=== PATIENT | male | born 1945 | race Caucasian/White ===

== ENCOUNTER → 2017-12-17 06:58 | Outpatient (CLI) | payer MEDICARE, SELFPAY ==
[2017-12-17 07:27] LABS: Hematocrit 44.4 % (40-54); Hemoglobin 14.1 g/dl (13.0-16.5); Mean Corp Hgb Conc 31.8 g/gl (32-36); Mean Corpuscular Hgb 27.1 pg (27.0-32.0); Mean Corpuscular Volume 85.2 fL (80-94); Mean Platelet Vol. 10.5 fl (6.2-12.0); Platelet Count 222 K/mm3 (150-450); RBC Distribution Width CV 14.2 % (11.6-14.6); RBC Distribution Width SD 44.6 fl (35.1-43.9); Red Blood Count 5.21 M/mm3 (4.6-6.2); White Blood Count 6.8 K/mm3 (4.4-11.0)
[2017-12-17 07:30] LABS: Scan Indicated on CBC? Y/N NO
[2017-12-17 07:44] LABS: ALB/GLOB Ratio 1.2 RATIO (0.9-2.4); AST(SGOT) 21 U/L (15-37); Alanine Aminotransfer ALT/SGPT 28 U/L (16-61); Alkaline Phosphatase 70 U/L (45-117); Anion Gap 6 (5-15); BUN 25 mg/dL (7-18); BUN/Creat Ratio 18.8 RATIO (10-20); Calcium,Total 8.9 mg/dL (8.5-10.1); Chloride 102 mmol/L (98-107); Cholesterol 149 mg/dL (200); Creatinine, Serum 1.33 mg/dL (0.70-1.30); EST Glomerular Filtration Rate 56 mL/min (>60); Est Glom Filt Rate - Afr Amer 68 mL/min (>60); Globulin 3.4 g/dL (2.2-4.2); Glucose 100 mg/dL (74-106); High Density Lipoprotein 50 mg/dL; Potassium 4.7 mmol/L (3.5-5.1); Protein, Total 7.4 g/dL (6.4-8.2); Sodium Level 140 mmol/L (136-145); T4 Free Direct 1.11 ng/dL (0.76-1.46); Thyroid Stim Hormone (TSH) 1.64 uIU/mL (0.358-3.74); Triglycerides 111 mg/dL; Very Low Density Lipoprotein 22 mg/dL (5-40)
== END ==
PROVIDERS: Family Provider Family Medicine; PCP Family Medicine; Visit Provider Family Medicine
DX: E78.2 Mixed hyperlipidemia (principal); K21.9 Gastro-esophageal reflux disease without esophagitis; C32.9 Malignant neoplasm of larynx, unspecified
CPT/HCPCS: 36415; 80053; 80061; 84439; 84443; 85027

== ENCOUNTER 2018-03-19 13:07 | Emergency (ER) | payer MEDICARE, SELFPAY ==
--- NOTE | 2018-03-19 13:07 | DT_ITS ---
This patient was seen during an EMR downtime March 17, 2018 - March 24, 2018. This patient may have a combination of paper and electronic documentation or all paper documentation. All documentation is viewable within the e-chart portion of [facility] for each patient visit.
--- NOTE | 2018-03-19 13:57 | RAD_ITS ---
STUDY: X-RAY - LUMBAR SPINE REASON FOR EXAM: Male, 72 years old. LOWER BACK PAIN TECHNIQUE: 5 view(s) of the lumbar spine were obtained. COMPARISON: None FINDINGS: Normal lumbar lordosis. There is mild scoliosis centered at L1/L2. There is mild depression at superior endplate of L2, consistent with fracture of indeterminate age. There is no retropulsion.. There is multilevel endplate spondylosis of the lumbar vertebrae. There is multi-level degenerative disc disease with multi-level disc space narrowing. There are calcification at the left renal region. RAD/L/S Spine Min 4 Views IMPRESSION: Degenerative changes of the spine. Mild superior endplate fracture at L2, indeterminate age. Electronically Signed: Mela Kaur MD at 10:35 EDT Tel , Service support ,
== END 2018-03-19 16:30 | disposition home or self-care (01) ==
LOC: ED 03-20 13:46
PROVIDERS: Emergency Provider Emergency Medicine; Family Provider Family Medicine; PCP Family Medicine
DX: M54.41 Lumbago with sciatica, right side (principal); M51.36 Other intervertebral disc degeneration, lumbar region; N20.0 Calculus of kidney; E78.00 Pure hypercholesterolemia, unspecified; K21.9 Gastro-esophageal reflux disease without esophagitis; Z79.899 Other long term (current) drug therapy; Z87.891 Personal history of nicotine dependence
CPT/HCPCS: 36415; 72110; 99283

== ENCOUNTER 2018-03-21 04:28 | Emergency (ER) | payer MEDICARE, SELFPAY ==
--- NOTE | 2018-03-21 04:28 | DT_ITS ---
This patient was seen during an EMR downtime March 17, 2018 - March 24, 2018. This patient may have a combination of paper and electronic documentation or all paper documentation. All documentation is viewable within the e-chart portion of [facility] for each patient visit.
[2018-03-22 10:11] LABS: Anion Gap 9 (5-15); BUN 17 mg/dL (7-18); BUN/Creat Ratio 14.8 RATIO (10-20); Calcium,Total 8.7 mg/dL (8.5-10.1); Chloride 104 mmol/L (98-107); Creatinine, Serum 1.15 mg/dL (0.70-1.30); EST Glomerular Filtration Rate 67 mL/min (>60); Est Glom Filt Rate - Afr Amer 81 mL/min (>60); Glucose 103 mg/dL (74-106); Potassium 4.1 mmol/L (3.5-5.1); Sodium Level 142 mmol/L (136-145)
[2018-03-22 10:11] LABS: Red Blood Count 4.74 M/mm3 (4.6-6.2); White Blood Count 7.8 K/mm3 (4.4-11.0)
[2018-03-22 10:12] LABS: Absolute Lymphocyte Count 1.94 X10^3/ul (0.83-4.51); Absolute Neutrophil Count 4.7 X10^3/uL (2.0-7.7); Basophil# 0.14 X10^3/uL; Basophil% 1.8 % (0-1); Eosinophil# 0.12 X10^3/uL; Eosinophils% 1.5 % (0-5); Erythrocyte Sedimentation Rate 18 mm/hr (0-20); Hematocrit 39.5 % (40-54); Hemoglobin 12.2 g/dl (13.0-16.5); Lymphocyte # 1.94 X10^3/ul (4.0); Mean Corp Hgb Conc 30.9 g/gl (32-36); Mean Corpuscular Hgb 25.7 pg (27.0-32.0); Mean Corpuscular Volume 83.3 fL (80-94); Monocyte# 0.88 X10^3/uL; Monocyte% 11.3 % (0-10); Neutrophil # 4.68 X10^3/uL (2.7-7.7); Neutrophil % 60.3 % (47-70); POSITIVE COUNT NO; POSITIVE DIFFERENTIAL NO; POSITIVE MORPHOLOGY NO; Platelet Count 234 K/mm3 (150-450); RBC Distribution Width CV 14.1 % (11.6-14.6); RBC Distribution Width SD 42.7 fl (35.1-43.9)
== END 2018-03-21 06:33 | disposition home or self-care (01) ==
PROVIDERS: Emergency Medicine; Emergency Provider Emergency Medicine; Family Provider Family Medicine; PCP Family Medicine
DX: M79.604 Pain in right leg (principal); K21.9 Gastro-esophageal reflux disease without esophagitis; E78.00 Pure hypercholesterolemia, unspecified; Z87.891 Personal history of nicotine dependence; Z79.899 Other long term (current) drug therapy
CPT/HCPCS: 80048; 85025; 85652; 96372; 99283

== ENCOUNTER → 2018-11-20 11:23 | Outpatient (CLI) | payer MEDICARE, SELFPAY ==
--- NOTE | 2018-11-20 11:26 | RAD_ITS ---
STUDY: X-RAY - ABDOMEN/PELVIS REASON FOR EXAM: Male, 73 years old. Flank pain TECHNIQUE: Single AP view of the abdomen / pelvis. COMPARISON: 2014 FINDINGS: There is a funnel-shaped 1.6 cm calcification over the mid left kidney. No suspicious calcifications overlying the right kidney. There are stable lucent centered phleboliths within the pelvis. There is a moderate amount of colonic fecal material. There is no demonstrated free abdominal air. The visualized liver, spleen and kidneys are grossly normal in size and morphology. Normal soft tissue structures. There are diffuse degenerative changes of the visualized lumbar spine with a stable chronic compression fracture at L2. RAD/Abdomen Single View IMPRESSION: Left nephrolithiasis Degenerative bony changes with chronic compression fracture at L2 Electronically Signed: Mariano Galvin MD at 11:43 EST , Service support ,
== END ==
PROVIDERS: Family Provider Family Medicine; PCP Family Medicine; Referring Provider Urology; Visit Provider Urology
DX: N20.0 Calculus of kidney (principal)
CPT/HCPCS: 74018

== ENCOUNTER 2018-11-26 14:13 | Day surgery (SDC) | payer MEDICARE, SELFPAY ==
--- NOTE | 2018-11-25 17:16 | PCM.HP.BLA ---
History and Physical Date of Admission: 11/26/18 73 yo male presents with ongoing UTI since 2017. Has been on multiple rounds of antibiotics plus rocephin shots x 2. Currently taking cefdinir, does feel much better on it. Urine cultures have grown E coli. H/o sepsis with kidney stone before. CT shows 14 mm stone in left renal pelvis. Has intermittent back ache L>R. H/o stones, ESWL, stents. H/o TURP. ALLERGIES: None MEDICATIONS: Aspirin Ec 81 mg tablet, delayed release 1 tablet PO Daily Atorvastatin Calcium Cefdinir Multivitamin Prilosec Vitamin C Zantac Notes: Had the pneumonia vaccine 2011 Patient takes a medication for GERD, but does not remember name PSH: Cysto Remove Stent FB Sim - 2014 Cystolithotomy - 2007 Cystoscopy Insert Stent - 2014 Cystoscopy TURP - 2013 Renal ESWL - 2014 NON- PSH: Cholecystectomy Patient documented to have received pneumococcal vaccination Throat Surgery (Unspecified) PMH: Calculus of kidney - 2015, - 2015, - 2014, - 2014 Other abnormal findings in urine - 2015 Benign prostatic hyperplasia with lower urinary tract symptoms - 2013, - 2013, - 2013 Retention of urine, unspecified - 2013, - 2013 NON- PMH: Encounter for surgical aftcr following surgery on the sys - 2013 FAMILY HISTORY: None SOCIAL HISTORY: Marital Status: Preferred Language: Singaporean; Ethnicity: Not Or ; Race: White Current Smoking Status: Patient does not smoke anymore. Does not use smokeless tobacco. Social Drinker. Does not use drugs. Drinks 4+ caffeinated drinks per day. Has not had a blood transfusion. REVIEW OF SYSTEMS: Constitutional: Patient denies fever, chills, weight loss, and weight gain. Eyes: Patient denies blurry vision, cataracts, and vision problems. Ears, Nose, Mouth, Throat: Patient denies hearing loss, sinus infections, nasal stuffiness, and sleep apnea. Cardiovascular: Patient denies chest pains, swollen ankles, irregular heartbeat, and pacemaker/defibrillator. Respiratory: Patient denies shortness of breath, wheezing, use oxygen, cpap at night., and copd. Gastrointestinal: Patient denies abdominal pain, nausea/vomiting, and change in bowels. Genitourinary: Patient reports get up at night to void and history of stones. Patient denies frequent urination, urinary retention, leakage of urine, blood in urine, frequent urinary tract infections, difficulty starting stream, weak stream, and bedwetting. Musculoskeletal: Patient denies sore muscles, back pain, gout, and arthritis. Integumentary/Skin: Patient denies rash, persistent itching, and skin cancer history. Neurological: Patient denies history of falling/unsteadiness., dizziness, stroke/tia, and numbness. Hematologic/Lymphatic: Patient denies swollen glands, abnormal bleeding, transfusion history, and blood clots/dvt/pulmonary embolism. VITAL SIGNS: 11/20/2018 11:00 AM Weight 145 lb / 65.77 kg Height 64 in / 162.56 cm BP 128/62 mmHg BMI 24.9 kg/m? MULTI-SYSTEM PHYSICAL EXAMINATION: Constitutional: Well-nourished. No physical deformities. Normally developed. Good grooming. Neurologic / Psychiatric: Oriented to time, oriented to place, oriented to person. No depression, no anxiety, no agitation. Gastrointestinal: No mass, no tenderness, no rigidity, non obese abdomen. PAST DATA REVIEWED: Source Of History: Patient Records Review: Previous Doctor Records, Previous Patient Records Urine Test Review: Urinalysis X-Ray Review: KUB: Reviewed Films. Reviewed Report. Discussed With Patient. C.T. Abdomen/Pelvis: Reviewed Films. Reviewed Report. Discussed With Patient. 07/30/06 PSA Total PSA 0.50 PROCEDURES: Urinalysis - [address]6922 Dipstick Dipstick Cont'd Specimen: Voided Blood: Neg Appearance: Clear pH: 5.0 Color: Yellow Protein: Neg Glucose: Normal Urobilinogen: Neg Bilirubin: Neg Nitrites: Neg Ketones: Neg Leukocyte Esterase: Neg ASSESSMENT: ICD-10 Details 1 : Calculus of kidney - N20.0 Stable 2 Urinary tract infection, site not specified - N39.0 PLAN: Medications New Meds: Cefdinir 300 mg capsule 1 capsule PO Q 12 H #6 0 Refill(s) Document Letter(s): Created for Patient: Clinical Summary Notes: 73 yo male with 14 mm infected stone left renal pelvis, it is visible on KUB. Plan is for stent and ESWL on 11/26. Will keep him on antibiotic until then. Stop ASA now.
[2018-11-26 14:44] VITALS: BP 132/74; PULSE 68; RESP 18; TEMP 36.9; O2SAT 100; BMI 25.9
[2018-11-26] MEDS: Cefazolin 2 GM in 0.9% Normal Saline 100 ML IV (16:11)
--- NOTE | 2018-11-26 17:25 | DCINST_ITS ---
Discharge Diet: Light diet - advance as tolerated Discharge Activity: Return to Normal Activity May resume sexual activity in: No Restrictions Call your doctor if you observe: Fever of 101 or Higher Suture Line Care: Avoid Pulling/Pushing, Avoid Pinching/Bending Allergies/Adverse Reactions: Allergies No Known Allergies Allergy (Verified 11/24/18 13:46) Medications to take at Discharge Aspirin [Aspirin, Baby] 81 mg PO DAILY@0800 #30 tab.chew 09/27/14 Atorvastatin Calcium [Lipitor] 40 mg PO QHS #30 tablet 09/27/14 Ascorbic Acid [Vitamin C] 1,000 mg PO DAILY 06/16/16 Multivitamins,Therapeutic [Multivitamin] 1 tablet PO DAILY 06/16/16 Ranitidine [Zantac] 150 mg PO DAILY 06/16/16 Cefdinir 300 mg PO DAILY 11/24/18 Acetaminophen [Tylenol Extra Strength] 500 mg PO Q4H PRN PRN #20 tablet 11/26/18 Ibuprofen 600 mg PO Q6H PRN PRN #20 tablet 11/26/18 The following prescriptions were given: Acetaminophen [Tylenol Extra Strength] 500 mg PO Q4H PRN PRN #20 tablet PRN Reason: Pain Ibuprofen 600 mg PO Q6H PRN PRN #20 tablet PRN Reason: Pain Primary Care Physician: Adams Chapman MD [Primary Care Provider] - Test Results: Test results from this visit will be discussed in further detail at your follow- up appointment, if applicable. Please Follow Up With: Jose A Beatty MD When: please call to make an appointment.
--- NOTE | 2018-11-26 17:26 | PCM.OPRPT ---
Report of Operation Date of Procedure: 11/26/18 Pre-Operative Diagnosis: Left renal calculi multiple Post-Operative Diagnosis: Same Surgery/Procedure Performed:: Cystoscopy and placement of the left stent and left shockwave lithotripsy Description of Surgical Findings:: 73-year-old male presents to the office with obstructing stone in the left renal pelvis also some nonobstructing stone in the left lower pole the left kidney today we plan to proceed with treatment to treat the stones with shockwave lithotripsy. 73-year-old male taken back to the operating room at the smooth induction of anesthesia he was placed supine on the table and then in dorsal lithotomy position penis and testicles are prepped and draped in usual sterile fashion went into the bladder with a 21 Citizen [place] rigid cystourethroscope the light entire length the urethra is normal pendulous urethra is normal bulbar urethra normal sphincter was intact prostate had been resected but he did have a minor bladder neck contracture was able to get through this with the scope and then identified the left ureteral orifice with a and then used a Glidewire advanced up to the kidney and over the wire place a stent 6 Citizen [place] by 26 cm stent. The patient was then repositioned on the table and shockwave lithotripsy was performed on the stone in the left renal pelvis after about 2000 shockwaves the stone had broken up completely there is also some fragments of the lower pole the left kidney and these were shocked with another thousand fragment thousand shockwaves. After completing 3000 shockwaves to the stones in the pelvis and the lower pole stone broke up really well left stent in place left the string of the stent for easy extraction and next week Type of Anesthesia:: General Drains: benja: Rightnt - Admit VTE Documentation VTE Present on Admission: No VTE Mechan Device Prophylaxis: SCD's
--- NOTE | 2018-11-26 17:29 | OP.PCM_ITS ---
Report of Operation Date of Procedure: 11/26/18 Pre-Operative Diagnosis: Left renal calculi multiple Post-Operative Diagnosis: Same Surgery/Procedure Performed:: Cystoscopy and placement of the left stent and left shockwave lithotripsy Description of Surgical Findings:: 73-year-old male presents to the office with obstructing stone in the left renal pelvis also some nonobstructing stone in the left lower pole the left kidney today we plan to proceed with treatment to treat the stones with shockwave lithotripsy. 73-year-old male taken back to the operating room at the smooth induction of anesthesia he was placed supine on the table and then in dorsal lithotomy position penis and testicles are prepped and draped in usual sterile fashion went into the bladder with a 21 [place] rigid cystourethroscope the light entire length the urethra is normal pendulous urethra is normal bulbar urethra normal sphincter was intact prostate had been resected but he did have a minor bladder neck contracture was able to get through this with the scope and then identified the left ureteral orifice with a and then used a Glidewire advanced up to the kidney and over the wire place a stent 6 [place] by 26 cm stent. The patient was then repositioned on the table and shockwave lithotripsy was performed on the stone in the left renal pelvis after about 2000 shockwaves the stone had broken up completely there is also some fragments of the lower pole the left kidney and these were shocked with another thousand fragment thousand shockwaves. After completing 3000 shockwaves to the stones in the pelvis and the lower pole stone broke up really well left stent in place left the string of the stent for easy extraction and next week Type of Anesthesia:: General Drains: benja: Rightnt - Admit VTE Documentation VTE Present on Admission: No VTE Mechan Device Prophylaxis: SCD's
[2018-11-26 17:35] VITALS: BP 132/74; BP 143/98; PULSE 70; RESP 16; TEMP 36.6; O2SAT 98
[2018-11-26 17:45] VITALS: BP 132/74; BP 140/107; PULSE 70; RESP 16; O2SAT 100
[2018-11-26 18:00] VITALS: BP 132/74; BP 158/87; PULSE 68; RESP 16; O2SAT 95
[2018-11-26 18:05] VITALS: BP 132/74; BP 136/83; PULSE 68; RESP 16; TEMP 36.6; O2SAT 99
[2018-11-26 18:43] VITALS: BP 132/74
== END 2018-11-26 18:55 | disposition home or self-care (01) ==
LOC: SDC 14:17 → AC 14:21
PROVIDERS: Family Provider Family Medicine; PCP Family Medicine; Referring Provider Urology; Visit Provider Urology
PROC: (CPT 50590; principal; 2018-11-26 16:15)
DX: N20.0 Calculus of kidney (principal); N39.0 Urinary tract infection, site not specified; B96.20 Unspecified Escherichia coli [E. coli] as the cause of diseases classified elsewhere; Z87.891 Personal history of nicotine dependence; K21.9 Gastro-esophageal reflux disease without esophagitis; E78.00 Pure hypercholesterolemia, unspecified; Z79.899 Other long term (current) drug therapy; Z79.82 Long term (current) use of aspirin; Z85.21 Personal history of malignant neoplasm of larynx
CPT/HCPCS: 50590; 52332; J7120; C1769; C2617; J2405

== ENCOUNTER → 2018-12-04 12:46 | Outpatient (CLI) | payer MEDICARE, SELFPAY ==
[2018-11-26 14:44] VITALS: BMI 25.9
--- NOTE | 2018-12-04 12:48 | RAD_ITS ---
STUDY: X-RAY - ABDOMEN/PELVIS REASON FOR EXAM: Male, 73 years old. Left ureter stent for kidney stones TECHNIQUE: Single AP view of the abdomen / pelvis. COMPARISON: 11/20/2018 FINDINGS: Left ureter stent extends from the left renal shadow to the lower midline pelvis. Interval fragmentation of left renal calculus with small calcifications projecting over the inferior left renal shadow measuring up to 6 mm. There is an unremarkable bowel gas pattern. There is no demonstrated free abdominal air. Calcification projecting over the right mid kidney correlates to calculi evident on prior CT of 01/05/2015 There are calcified phleboliths in the pelvis. Normal visualized osseous structures. RAD/Abdomen Single View IMPRESSION: 1. Fragmentation of left renal calculus with smaller fragments now projecting over the lower left kidney. Left ureter stent. 2. Right nephrolithiasis. Electronically Signed: Michel Bustillos MD at 14:24 EST , Service support ,
== END ==
PROVIDERS: Family Provider Family Medicine; PCP Family Medicine; Referring Provider Urology; Visit Provider Urology
DX: N20.0 Calculus of kidney (principal)
CPT/HCPCS: 74018

== ENCOUNTER 2020-05-08 19:12 | Emergency (ER) | payer MEDICARE, SELFPAY ==
[2020-05-08 19:13] VITALS: BP 113/66; PULSE 96; RESP 18; TEMP 37.4; O2SAT 94; BMI 24.5
--- NOTE | 2020-05-08 20:06 | CT_ITS ---
STUDY: CT ABDOMEN AND PELVIS WITHOUT CONTRAST REASON FOR EXAM: Male, 75 years old. FREQUENT URINATION, RIGHT FLANK PAIN WITH CHILLS, HX [place] RADIATION DOSAGE (If Supplied By Facility): CTDIvol = ( 7.52 ) mGy, DLP = ( 351.08 ) mGycm TECHNIQUE: Transaxial images were obtained from the dome of the diaphragm to the symphysis pubis without oral contrast, and without intravenous contrast. Sagittal and coronal images were reconstructed. Individualized dose optimization techniques were used for this CT. COMPARISON: 01-05-15 FINDINGS: The visualized lung bases demonstrate scarring/atelectasis. Mild infiltrates cannot be excluded. Right basilar calcified granuloma. The visualized portions of the heart are within normal limits. Normal liver. Status post cholecystectomy. No significant dilatation of extrahepatic biliary system. Normal spleen. Normal pancreas. Normal bilateral adrenal glands. Nonobstructing 8 mm stone in the right kidney. Mild right perinephric stranding. Normal left kidney. Small hiatal hernia. Mild ileus of the small intestine. Mild diverticulosis of the colon. The appendix is visualized and appears normal. Normal abdominal aorta. Normal inferior vena cava. Normal retroperitoneum. Normal urinary bladder. Fatty density at the inguinal canals, right more than left. Normal abdominal wall. Stable mild compression of L2.. CT/Abdomen/Pelvis without Cont IMPRESSION: Follow-up several right renal stone. Mild right perinephric stranding with infectious etiology cannot be excluded. Mild fatty density right inguinal canals. Mild colonic diverticulosis. Mild atelectasis/infiltrate at lung bases. Small hiatal hernia. Possible mild small bowel ileus. Electronically Signed: Mukund Verdin DO at 22:17 EDT Tel [phone], Service support ,
[2020-05-08 20:43] LABS: Absolute Lymphocyte Count 1.48 X10^3/uL (0.83-4.51); Absolute Neutrophil Count 16.2 X10^3/uL (2.0-7.7); Basophil# 0.06 X10^3/uL; Basophil% 0.3 % (0-1); Eosinophil# 0.01 X10^3/uL; Hematocrit 42.7 % (40-54); Hemoglobin 13.3 g/dL (13.0-16.5); Lymphocyte # 1.48 X10^3/ul (4.0); Lymphocyte % 7.4 % (19-41); Mean Corp Hgb Conc 31.1 g/dL (32-36); Mean Corpuscular Hgb 26.4 pg (27.0-32.0); Mean Corpuscular Volume 84.7 fL (80-94); Mean Platelet Vol. 10.5 fl (6.2-12.0); Monocyte# 2.19 X10^3/uL; Monocyte% 10.9 % (0-10); NRBC Flagged by Analyzer 0 % (0-5); Neutrophil # 16.18 X10^3/uL (2.7-7.7); Neutrophil % 80.9 % (47-70); POSITIVE DIFFERENTIAL YES; Platelet Count 206 K/mm3 (150-450); RBC Distribution Width CV 14.7 % (11.6-14.6); Red Blood Count 5.04 M/mm3 (4.6-6.2)
[2020-05-08 20:49] LABS: Mucous, Urine 0 SEEN /hpf (<or=2+)
[2020-05-08 20:54] LABS: Color, Urine Yellow (Yellow); Glucose, Dipstick Normal (Normal); Ketone-Dipstick 50 mg/dl (Negative); Leukocyte Esterase-Dipstick 100 /ul (Negative); Nitrite-Dipstick Positive (Negative); Occult Blood-Urine 250 /ul (Negative); Protein-Dipstick 15 mg/dl (Negative); Urine Bilirubin Dipstick Negative (Negative); Urine Clarity Sl. Cloudy (Clear); Urine Urobilinogen Normal (Normal)
[2020-05-08] MEDS: 0.9% Normal Saline 1,000 ML 1000 ML IV (21:00)
[2020-05-08 21:08] LABS: ALB/GLOB Ratio 1.1 RATIO (0.9-2.4); AST(SGOT) 17 U/L (15-37); Alanine Aminotransfer ALT/SGPT 27 U/L (16-61); Albumin, Serum 4.1 g/dL (3.2-5.0); Alkaline Phosphatase 94 U/L (45-117); Anion Gap 5 (5-15); BUN 22 mg/dL (7-18); Calcium,Total 8.8 mg/dL (8.5-10.1); Chloride 101 mmol/L (98-107); Creatinine, Serum 1.22 mg/dL (0.70-1.30); EST Glomerular Filtration Rate 62 mL/min (>60); Est Glom Filt Rate - Afr Amer 75 mL/min (>60); Estimated Creatinine Clearance 46.91 ml/min; Globulin 3.8 g/dL (2.2-4.2); Glucose 108 mg/dL (74-106); Potassium 3.8 mmol/L (3.5-5.1); Protein, Total 7.9 g/dL (6.4-8.2); Sodium Level 134 mmol/L (136-145)
[2020-05-08 21:15] LABS: Bacteria 3+ /hpf (None Seen)
[2020-05-08 21:16] LABS: White Blood Cells 5-10 SEEN /hpf (0-5)
[2020-05-08 21:17] LABS: Squamous Epithelial Cells - UA 0 SEEN /hpf (0-5)
[2020-05-08 21:18] LABS: Red Blood Cells-Urine 5-10 SEEN /hpf (0-5)
[2020-05-08 21:21] LABS: Differential Indicated SCAN CRITERIA MET
[2020-05-08 21:22] LABS: Platelet Estimate ADEQUATE (ADEQ); Red Cell Morphology NORM C+C NORMAL (NORM C&C)
--- NOTE | 2020-05-08 23:21 | ED.VISSUMM ---
- ER Visit Summary Date of Service: 05/08/20 Chief Complaint: Flank pain History of Present Illness: The patient is a 75 M who presents with flank pain that began yesterday. Patient describes it as aching and strong. Patient states that it is worse over his right flank. Patient states nothing makes it better or worse. Patient states he does have a history of kidney stones. Patient also states he has a history of kidney infections where he has developed sepsis from this. Patient admits to subjective chills but denies any fevers. Patient admits to some general myalgias. Patient denies any nausea or vomiting. Patient denies any dysuria or hematuria. Physical Examination: Vital signs are stable. Patient is afebrile here with a temperature of 99.4. Patient is in no acute distress. Oral mucosa is pink and moist. Neck is supple. Trachea is midline. There is no JVD. Heart was regular rate and rhythm. Lungs are clear and equal bilaterally. Abdomen is soft. Bowel sounds are normal. There is some right CVA tenderness. There is no rebound or guarding noted. Cranial nerves II through XII are intact. There are no focal motor or sensory deficits noted. Test Results: CBC shows a leukocytosis of 20.0. Comprehensive metabolic profile was essentially within normal limits. Urinalysis showed leukocyte esterase of 100 with positive nitrates. Ketones were 50. Occult blood was 250. There are 5-10 white blood cells and 5-10 red blood cells. There is 3+ bacteria. There are no epithelial cells. Lactate was normal at 1.0. CT scan of the abdomen and pelvis was obtained. There is an 8 mm right renal calculus. There is no hydronephrosis or hydroureter. There is some perinephric stranding of the right kidney. This was interpreted by the radiologist and reviewed by myself. Emergency Department Course and Treatment: Patient was given IV fluids here. Patient was started on Rocephin. Urine culture was sent. Blood cultures were obtained. Patient was given a prescription for Cipro. Patient is tolerating p.o. fluids. Patient was instructed to drink plenty of fluids. Patient was instructed to follow-up with his primary care physician in 3 to 5 days. Patient was also instructed to follow-up with his urologist. Patient was instructed to return if worse in any way. Patient understood and was agreeable with the plan. All questions were answered. Disposition: Discharge home Impression: Pyelonephritis This note was generated with [employer] dictation software. It may contain incorrect words, spelling, and punctuation that were not noted in review of the chart prior to signing ED Disposition - Plan for ED Patient: Disposition: Home or Assisted Living Diagnosis: Pyelonephritis Instructions: ED UTI Pyelonephritis Male Prescriptions: Ciprofloxacin [Cipro] 500 mg PO BID #14 tab Prescription Printed Referrals: Adams Chapman MD [Primary Care Provider] - 5-7 Days Jose A Beatty MD [STAFF PHYSICIAN] - 5-7 Days
[2020-05-08 23:34] VITALS: BP 120/74; PULSE 82; RESP 18; TEMP 36.4; O2SAT 97
[2020-05-08] MEDS: Ceftriaxone 1 GM/50 ML BAG IV (23:36)
[2020-05-09 00:24] VITALS: BP 120/74; PULSE 82; RESP 18; TEMP 36.4; O2SAT 97
[2020-05-09 12:59] LABS: Pathologist Review Reviewed
== END 2020-05-09 00:32 | disposition home or self-care (01) ==
PROVIDERS: Emergency Provider Emergency Medicine; PCP Family Medicine
DX: N12 Tubulo-interstitial nephritis, not specified as acute or chronic (principal); Z87.442 Personal history of urinary calculi; Z87.440 Personal history of urinary (tract) infections; Z86.19 Personal history of other infectious and parasitic diseases
CPT/HCPCS: 74176; 80053; 81001; 83605; 85025; 87040; 87077; 87086; 87088; 87186; 96361; 96365; 99283; J7030; A4216

== ENCOUNTER → 2020-05-30 10:51 | Outpatient (CLI) | payer MEDICARE, SELFPAY ==
[2020-05-08 19:13] VITALS: BMI 24.5
--- NOTE | 2020-05-30 10:55 | RAD_ITS ---
STUDY: X-RAY - ABDOMEN/PELVIS REASON FOR EXAM: Male, 75 years old. RIGHT CALCULUS F/U TECHNIQUE: Single AP view of the abdomen / pelvis. COMPARISON: 12/04/2018 FINDINGS: Since the previous study, left-sided JJ stent has been removed. Previous noted calcifications overlying the lower pole of the left kidney are also no longer identified since the previous study. No new calcifications noted over either renal shadow or along the expected course of either ureter. Stable pelvic phleboliths. There is an unremarkable bowel gas pattern. There is no demonstrated free abdominal air. The visualized liver, spleen and kidneys are grossly normal in size and morphology. Normal soft tissue structures. There are diffuse degenerative changes of the visualized lumbar spine. RAD/Abdomen Single View IMPRESSION: No suspicious findings Electronically Signed: Mariano Galvin MD at 11:15 EDT , Service support ,
== END ==
PROVIDERS: PCP Family Medicine; Referring Provider Urology; Visit Provider Urology
DX: N20.0 Calculus of kidney (principal)
CPT/HCPCS: 74018

== ENCOUNTER → 2021-08-22 16:22 | Outpatient (CLI) | payer MEDICARE, SELFPAY ==
--- NOTE | 2021-08-22 16:25 | RAD_ITS ---
STUDY: X-RAY - ABDOMEN/PELVIS REASON FOR EXAM: Male, 76 years old. Flank pain TECHNIQUE: Two AP supine views of the abdomen and pelvis. COMPARISON: 05/30/2020 FINDINGS: Normal visualized lung bases. There is an unremarkable bowel gas pattern. There is no demonstrated free abdominal air. Previous cholecystectomy The visualized liver, spleen and kidneys are grossly normal in size and morphology. Punctate calcifications overlying the left renal shadow. There are calcified phleboliths in the pelvis. Normal visualized osseous structures. RAD/Abdomen Single View IMPRESSION: No acute abdominal or pelvic process Likely left nephrolithiasis Electronically Signed: Mariano Galvin MD at 17:02 EST , Service support ,
== END ==
PROVIDERS: PCP Family Medicine; Referring Provider Urology; Visit Provider Urology
DX: N20.0 Calculus of kidney (principal); N40.1 Benign prostatic hyperplasia with lower urinary tract symptoms
CPT/HCPCS: 74018

== ENCOUNTER → 2021-08-30 07:10 | Outpatient (CLI) | payer MEDICARE, SELFPAY ==
[2021-08-30 08:09] LABS: ALB/GLOB Ratio 0.9 RATIO (0.9-2.4); AST(SGOT) 23 U/L (15-37); Alanine Aminotransfer ALT/SGPT 32 U/L (16-61); Albumin, Serum 3.4 g/dL (3.2-5.0); Alkaline Phosphatase 76 U/L (45-117); Anion Gap 4 (5-15); BUN 19 mg/dL (7-18); Calcium,Total 8.7 mg/dL (8.5-10.1); Chloride 105 mmol/L (98-107); Cholesterol 121 mg/dL (200); Creatinine, Serum 1.27 mg/dL (0.70-1.30); EST Glomerular Filtration Rate 59 mL/min (>60); Est Glom Filt Rate - Afr Amer 71 mL/min (>60); Globulin 3.6 g/dL (2.2-4.2); Glucose 105 mg/dL (74-106); High Density Lipoprotein 47 mg/dL; Potassium 4.4 mmol/L (3.5-5.1); Sodium Level 138 mmol/L (136-145); Triglycerides 77 mg/dL; Very Low Density Lipoprotein 15 mg/dL (5-40)
== END ==
PROVIDERS: PCP Family Medicine; Referring Provider Family Medicine; Visit Provider Family Medicine
DX: Z00.00 Encounter for general adult medical examination without abnormal findings (principal); E78.2 Mixed hyperlipidemia; H61.23 Impacted cerumen, bilateral; Z12.5 Encounter for screening for malignant neoplasm of prostate
CPT/HCPCS: 36415; 80053; 80061; 84153; G0103

== ENCOUNTER → 2022-06-26 | Outpatient (CLI) | payer MEDICARE, SELFPAY ==
[2022-06-28 16:09] LABS: Endomysial Antibody IgA Negative (Negative)
[2022-06-28 16:35] LABS: Immunoglobulin A 332 mg/dL (61-437); t-Transglutaminase IgA 8 U/mL (0-3)
== END | disposition home or self-care (01) ==
LOC: MTLAB 14:45
PROVIDERS: PCP Family Medicine; Referring Provider Internal Medicine Gastroenterology; Visit Provider Internal Medicine Gastroenterology
DX: R19.7 Diarrhea, unspecified (principal)
CPT/HCPCS: 36415; 82784; 83516; 86140; 86255

== ENCOUNTER 2022-08-03 20:14 | Emergency (ER) | payer MEDICARE, SELFPAY ==
[2022-08-03 20:16] VITALS: BP 170/85; PULSE 62; RESP 18; TEMP 36; O2SAT 97; BMI 26.3
[2022-08-03 20:18] VITALS: BP 170/85; PULSE 62; RESP 18; TEMP 36; O2SAT 97
--- NOTE | 2022-08-03 20:31 | CT_ITS ---
STUDY: CT ABDOMEN AND PELVIS WITHOUT CONTRAST REASON FOR EXAM: Male, 77 years old. Kidney Stone RADIATION DOSAGE (If Supplied By Facility): CTDIvol = ( 8.17 ) mGy, DLP = ( 371.37 ) mGycm TECHNIQUE: Transaxial images were obtained from the dome of the diaphragm to the symphysis pubis without oral contrast, and without intravenous contrast. Sagittal and coronal images were reconstructed. Individualized dose optimization techniques were used for this CT. COMPARISON: 05/08/2020 FINDINGS: The visualized lung bases are unremarkable. The visualized portions of the heart are within normal limits. Normal liver. There are surgical clips in the gallbladder fossa consistent with a prior cholecystectomy. Normal spleen. Normal pancreas. Normal bilateral adrenal glands. Bilateral nonobstructing renal stones. 5 mm obstructing stone of the mid right ureter with mild ureteral dilatation and hydronephrosis. Normal visualized stomach. Normal small intestine. There are multiple colonic diverticula consistent with diverticulosis. There is non-visualization of the appendix. Normal abdominal aorta. Normal inferior vena cava. Normal retroperitoneum. Normal urinary bladder. Normal abdominal wall. Normal osseous structures. CT/Abdomen/Pelvis without Cont IMPRESSION: 5 mm obstructing stone of the mid right ureter with mild ureteral dilatation and hydronephrosis per Electronically Signed: Giuseppe Lopez MD at 21:49 EDT ,
--- NOTE | 2022-08-03 20:32 | EX.ED.DYSGE1 ---
HPI History of Present Illness Chief Complaint: Flank Pain Informant: patient Narrative Narrative: Waxing waning right flank pain rating to the right side persistent pressure that intensifies. History of kidney stones however this is less intense. No fevers. No urinary symptoms. Denies history of gastric ulcers or kidney injury. No shingles in the past. Currently not nauseated. Symptoms intensified while at [employer] that brought him here. Prior similar symptoms: No PFSH PFSH Home Medications ascorbic acid (vitamin C) 1,000 mg tablet,extended release 500 mg PO DAILY 06/16/16 [History Last Taken Unknown] multivitamin with folic acid 400 mcg tablet (Thera) 1 tab PO DAILY 06/16/16 [History Last Taken Unknown] acetaminophen 500 mg tablet 500 mg PO Q4H PRN PRN Pain ##20 11/26/18 [Rx Last Taken Unknown] atorvastatin 40 mg tablet 10 mg PO DAILY 08/03/22 [History Last Taken Unknown] docusate sodium 100 mg capsule (Colace) 100 mg PO DAILY #30 caps 08/03/22 [Rx Last Taken Unknown] ferrous sulfate 324 mg (65 mg iron) tablet,delayed release 324 mg PO DAILY 08/03/22 [History Last Taken Unknown] ondansetron 4 mg disintegrating tablet 4 mg PO Q6H PRN nausea and vomiting #10 tabs 08/03/22 [Rx Last Taken Unknown] oxycodone-acetaminophen 5 mg-325 mg tablet (Percocet) 1 tab PO Q6H PRN pain 3 days #12 tabs 08/03/22 [Rx Last Taken Unknown] pantoprazole 40 mg tablet,delayed release 40 mg PO DAILY 08/03/22 [History Last Taken Unknown] Allergy/AdvReac Type Severity Reaction Status Date / Time No Known Allergies Allergy Verified 08/03/22 20:50 Surgical History (Updated 08/03/22 @ 20:51 by Emelia Akhtar) History of cholecystectomy Hx of hernia repair Social History Smoking Status: Former smoker ROS ROS ED Constitutional Constitutional ED: Denies chills, fever(s) or sweats Eyes Eyes: Denies change in vision ENT ENT ED: Denies dysphagia or sore throat Cardiovascular Cardiovascular: Denies chest pain, leg edema, palpitations or racing heartbeat Respiratory/Chest Respiratory/Chest: Denies cough, dyspnea or dyspnea on exertion Gastrointestinal Gastrointestinal: Denies abdominal pain, diarrhea, nausea or vomiting Genitourinary Genitourinary ED: Denies dysuria, hematuria or urinary frequency Musculoskeletal Musculoskeletal: Reports back pain; Denies extremity pain or neck pain Integumentary Denies rash or wounds Neurologic Neurologic: Denies headache(s), paresthesias or weakness EXAM Physical Exam Const Vital Signs: 08/03/22 20:16 08/03/22 20:18 08/03/22 22:17 Temperature 96.8 F L 96.8 F L Temperature Source Temporal Temporal Pulse Rate 62 62 Respiratory Rate 18 18 17 Blood Pressure 170/85 H 170/85 H Blood Pressure Mean 113 113 Pulse Ox 97 97 98 Oxygen Delivery Method Room Air Room Air Room Air 08/03/22 22:17 Temperature Temperature Source Pulse Rate Respiratory Rate Blood Pressure 132/74 H Blood Pressure Mean Pulse Ox Oxygen Delivery Method Positive well nourished and well developed General Appearance ED: well developed and NAD HEENT Reports moist mucous membranes normocephalic and atraumatic Eyes PERRL, EOMs intact bilaterally and conjunctivae normal General Eye ED: Yes normal appearance of both eyes Neck no lymphadenopathy and supple General: Negative for tenderness Chest Wall Chest: Negative for tenderness Resp normal respiratory effort and normal air movement Effort and Inspection: symmetric chest movement; Negative for respiratory distress Cardio regular rate, regular rhythm and no murmurs Peripheral Pulses: pulses 2+ throughout GI normal to inspection, nondistended, normoactive bowel sounds and non-tender GI Narrative: Negative Gerard's or McBurney's tenderness. Palpation: Negative for guarding or rebound tenderness present Back/Spine no thoracic nor lumbar tenderness Back/Spine Narrative: Tenderness to the right flank with palpation to the right side abdomen. There is no current rash. Extremity normal to inspection General Extremety ED: Negative for edema or tenderness General Extremity: Negative for edema Neuro oriented x3 and no sensory deficits noted Sensorium / Orientation: awake and alert Skin no rashes or lesions noted and no wounds MDM MDM MDM Narrative Medical decision making narrative: Patient vital stable nontoxic. Pain right side abdomen. With his history renal stone protocol initiated denies any history of kidney injury, Toradol was given with improvement. Labs White count 9.4 hemoglobin 13.3. Creatinine 1.59 up from 1.27 a year ago. Urine positive for nitrite leukocytes WBCs and bacteria. Culture sent. Covered with Rocephin antibiotic. CT scan results of mid ureteral 5 mm stone with hydro-. Patient reported history of septic stone in the past however this within the last 9 years. Healthy otherwise. 2199: Discussed Dr. Beatty, who is his urologist, states without a white count fevers or chills currently with symptom control to be treated as an outpatient with strict return precautions. He will be placed on Keflex 3 times daily, will avoid NSAIDs, oxycodone's antiemetics and stool softeners. He will call on Saturday to be seen with strict return precautions. All questions were answered. Lab Data Attestation: I reviewed the patient's lab results. Labs: Laboratory Results - last 24 hr 08/03/22 08/03/22 08/03/22 20:41 20:41 20:41 WBC 9.4 RBC 5.27 Hgb 13.2 Hct 43.7 MCV 82.9 MCH 25.0 L MCHC 30.2 L RDW Std Deviation 50.0 H RDW Coeff of Yo 16.6 H Plt Count 213 MPV 10.5 Immature Gran % (Auto) 0.100 Neut % (Auto) 62.1 Lymph % (Auto) 24.3 [place] % (Auto) 11.1 H Eos % (Auto) 1.4 Baso % (Auto) 1.0 Absolute Neuts (auto) 5.8 Absolute Lymphs (auto) 2.28 Nucleated RBC % 0 Sodium 138 Potassium 3.9 Chloride 102 Carbon Dioxide 30.0 Anion Gap 6 BUN 31 H Creatinine 1.59 H Estim Creat Clear Calc 33.61 Est GFR (MDRD) Af Amer 55 L Est GFR (MDRD) Non-Af 45 L BUN/Creatinine Ratio 19.5 Glucose 108 H Calcium 9.2 Urine Color Yellow Urine Clarity Cloudy Urine pH 6.0 Ur Specific [place] 1.015 Urine Protein 30 H Urine Glucose (UA) Normal Urine Ketones Negative Urine Occult Blood 250 H Urine Nitrite Positive H Urine Bilirubin Negative Urine Urobilinogen Normal Ur Leukocyte Esterase 100 H Urine RBC > 100 SEEN Urine WBC 10-25 SEEN Ur Squamous Epith Cells 0 SEEN Urine Bacteria 4+ Urine Mucus 0 SEEN Radiography Diagnostic Testing: Clinical Impression(s) from Imaging Studies Abdomen/Pelvis CT 08/03/22 20:31 IMPRESSION: 5 mm obstructing stone of the mid right ureter with mild ureteral dilatation and hydronephrosis per Electronically Signed: Giuseppe Lopez MD at 21:49 EDT , Discharge Plan Triage Chief Complaint: Flank Pain ED Provider: Abelardo Estrella Dx/Rx/DC Orders Clinical Impression: Renal colic on right side, Urolithiasis, Acute UTI, Hematuria, Acute renal insufficiency Instructions: Urinary Tract Infections in Men, ED Kidney Stone w/ Colic Prescriptions: New docusate sodium [Colace] 100 mg capsule 100 mg PO DAILY Qty: 30 0RF oxycodone-acetaminophen [Percocet] 5-325 mg tablet 1 tab PO Q6H PRN (Reason: pain) 3 Days Qty: 12 0RF ondansetron 4 mg tablet,disintegrating 4 mg PO Q6H PRN (Reason: nausea and vomiting) Qty: 10 0RF No Action ascorbic acid (vitamin C) 1,000 MG tablet extended release 500 mg PO DAILY multivitamin with folic acid [Thera] 1 TABLET tablet 1 tab PO DAILY acetaminophen 500 MG tablet 500 mg PO Q4H PRN PRN (Reason: Pain) Qty: 20 0RF pantoprazole 40 mg tablet,delayed release (DR/EC) 40 mg PO DAILY ferrous sulfate 324 mg (65 mg iron) tablet,delayed release (DR/EC) 324 mg PO DAILY atorvastatin 40 MG tablet 10 mg PO DAILY Label Comments: CHOLESTEROL Primary Care Provider: Adams Chapman Referrals: Jose A Beatty MD [Med Staff - Active Staff] - 3-5 Days Adams Chapman MD [Primary Care Provider] - Activity Restrictions/Additional Instructions: 5 mm mid right ureteral stone. Urine with infection. Take medication as prescribed avoid ibuprofen at this time. Creatinine 1.59. Urine culture pending. Call Dr. Beatty on Saturday to be seen, return if any worsening symptoms. Disposition Disposition: Home, Self Care Discharge Date/Time: 08/03/22 22:18
[2022-08-03 20:46] LABS: Mucous, Urine 0 SEEN /hpf (<or=2+); Squamous Epithelial Cells - UA 0 SEEN /hpf (0-5)
[2022-08-03 20:47] LABS: Absolute Lymphocyte Count 2.28 X10^3/uL (0.83-4.51); Absolute Neutrophil Count 5.8 X10^3/uL (2.0-7.7); Basophil# 0.09 X10^3/uL; Eosinophil# 0.13 X10^3/uL; Eosinophils% 1.4 % (0-5); Hematocrit 43.7 % (40-54); Hemoglobin 13.2 g/dL (13.0-16.5); Lymphocyte # 2.28 X10^3/ul (0.83-4.51); Lymphocyte % 24.3 % (19-41); Mean Corp Hgb Conc 30.2 g/dL (32-36); Mean Corpuscular Volume 82.9 fL (80-94); Mean Platelet Vol. 10.5 fl (6.2-12.0); Monocyte# 1.04 X10^3/uL; Monocyte% 11.1 % (0-10); NRBC Flagged by Analyzer 0 % (0-5); Neutrophil # 5.84 X10^3/uL (2.7-7.7); Neutrophil % 62.1 % (47-70); Platelet Count 213 K/mm3 (150-450); RBC Distribution Width CV 16.6 % (11.6-14.6); Red Blood Count 5.27 M/mm3 (4.6-6.2); White Blood Count 9.4 K/mm3 (4.4-11.0)
[2022-08-03 20:48] LABS: Color, Urine Yellow (Yellow); Glucose, Dipstick Normal (Normal); Ketone-Dipstick Negative (Negative); Leukocyte Esterase-Dipstick 100 /ul (Negative); Nitrite-Dipstick Positive (Negative); Occult Blood-Urine 250 /ul (Negative); Protein-Dipstick 30 mg/dl (Negative); Specific Gravity, Urine 1.015 (1.002-1.030); Urine Bilirubin Dipstick Negative (Negative); Urine Clarity Cloudy (Clear); Urine Urobilinogen Normal (Normal)
[2022-08-03] MEDS: Ketorolac 15 MG/ML Vial IV (20:56)
[2022-08-03] MEDS: 0.9% Normal Saline 1,000 ML 250 ML IV (20:56)
[2022-08-03 20:59] LABS: Bacteria 4+ /hpf (None Seen); Red Blood Cells-Urine > 100 SEEN /hpf (0-5); White Blood Cells 10-25 SEEN /hpf (0-5)
[2022-08-03 21:00] LABS: Anion Gap 6 (5-15); BUN 31 mg/dL (7-18); BUN/Creat Ratio 19.5 RATIO (10-20); Calcium,Total 9.2 mg/dL (8.5-10.1); Chloride 102 mmol/L (98-107); Creatinine, Serum 1.59 mg/dL (0.70-1.30); EST Glomerular Filtration Rate 45 mL/min (>60); Est Glom Filt Rate - Afr Amer 55 mL/min (>60); Estimated Creatinine Clearance 33.61 ml/min; Glucose 108 mg/dL (74-106); Potassium 3.9 mmol/L (3.5-5.1); Sodium Level 138 mmol/L (136-145)
[2022-08-03] MEDS: Ceftriaxone 1 GM/50 ML BAG IV (21:46)
[2022-08-03 22:17] VITALS: BP 132/74; RESP 17; O2SAT 98
== END 2022-08-03 22:18 | disposition home or self-care (01) ==
PROVIDERS: Emergency Provider Emergency Medicine; PCP Family Medicine; Visit Provider Emergency Medicine
DX: N20.1 Calculus of ureter (principal); Z87.891 Personal history of nicotine dependence; N39.0 Urinary tract infection, site not specified; R31.9 Hematuria, unspecified
CPT/HCPCS: 74176; 80048; 81001; 85025; 87077; 87086; 87088; 87186; 96365; 96375; 99283; J7030

== ENCOUNTER → 2022-08-06 | Outpatient (CLI) | payer MEDICARE, SELFPAY ==
[2022-08-06 11:48] LABS: Absolute Lymphocyte Count 2.02 X10^3/uL (0.83-4.51); Basophil# 0.06 X10^3/uL; Basophil% 0.5 % (0-1); Eosinophil# 0.17 X10^3/uL; Eosinophils% 1.4 % (0-5); Hematocrit 41.1 % (40-54); Hemoglobin 12.6 g/dL (13.0-16.5); Lymphocyte # 2.02 X10^3/ul (0.83-4.51); Lymphocyte % 16.1 % (19-41); Mean Corp Hgb Conc 30.7 g/dL (32-36); Mean Corpuscular Hgb 25.2 pg (27.0-32.0); Mean Corpuscular Volume 82.2 fL (80-94); Monocyte# 1.32 X10^3/uL; Monocyte% 10.5 % (0-10); NRBC Flagged by Analyzer 0 % (0-5); Neutrophil # 8.95 X10^3/uL (2.7-7.7); Neutrophil % 71.2 % (47-70); Platelet Count 192 K/mm3 (150-450); RBC Distribution Width CV 16.6 % (11.6-14.6); RBC Distribution Width SD 49.5 fl (35.1-43.9); White Blood Count 12.6 K/mm3 (4.4-11.0)
[2022-08-06 13:38] LABS: Anion Gap 6 (5-15); BUN 24 mg/dL (7-18); BUN/Creat Ratio 16.2 RATIO (10-20); Calcium,Total 9.3 mg/dL (8.5-10.1); Chloride 104 mmol/L (98-107); Creatinine, Serum 1.48 mg/dL (0.70-1.30); EST Glomerular Filtration Rate 49 mL/min (>60); Est Glom Filt Rate - Afr Amer 60 mL/min (>60); Ferritin 71 ng/mL (26-388); Glucose 102 mg/dL (74-106); Iron 22 ug/dL (65-175); Potassium 4.4 mmol/L (3.5-5.1); Sodium Level 138 mmol/L (136-145)
== END | disposition home or self-care (01) ==
LOC: LAB 11:23
PROVIDERS: Urology; PCP Family Medicine; Referring Provider Internal Medicine Gastroenterology; Visit Provider Internal Medicine Gastroenterology
DX: D50.9 Iron deficiency anemia, unspecified (principal)
CPT/HCPCS: 36415; 80048; 82728; 83540; 85025